=== PATIENT | female | born 1950 | race Caucasian/White ===

== ENCOUNTER 2017-12-01 12:31 | Emergency (ER) | payer MEDICARE, OTHER ==
[2017-12-01] MEDS ORDERED: NS 0.9% 1000 ML* 1,000 ML IV ONE (12:57)
[2017-12-01] MEDS ORDERED: Labetalol IV* 200 MG in NS 0.9% 250 ML* 160 ML IVPB ONE (13:00)
[2017-12-01 13:11] LABS: ABS Basophils 0.1 10^3/ul (0-0.2); ABS Eosinophils 0.1 10^3/ul (0-0.6); ABS Monocytes 0.6 10^3/ul (0-0.8); ABS Neutrophils 5.9 10^3/ul (1.5-7.7); ABS Nucleated RBC 0 10^3/ul; Eosinophil % 0.9 % (0-6); Hematocrit 41 % (35-47); Hemoglobin 14.1 g/dl (12.0-16.0); Lymphocyte % 31.2 % (25-47); Mean Corpuscular HGB Conc 35 g/dl (31-36); Mean Corpuscular Hemoglobin 32 pg (27-31); Mean Corpuscular Volume 91 fL (80-97); Mean Platelet Volume 7 um3 (7.4-10.4); Nucleated Red Blood Cells % 0; Platelet Count 347 10^3/ul (150-450); Red Blood Count 4.45 10^6/ul (4.0-5.4); Red Cell Distribution Width 13 % (10.5-15); White Blood Count 9.6 10^3/ul (3.5-10.8)
[2017-12-01 13:28] LABS: EGFR Non-African American 54.3 (>60)
--- NOTE | 2017-12-01 13:35 | RAD ---
HISTORY: Dizziness, uncontrolled hypertension COMPARISONS: None TECHNIQUE: Multiple contiguous axial CT scans were obtained of the head without intravenous contrast. FINDINGS: HEMORRHAGE/INFARCT: There is no hemorrhage or acute infarct. MASSES/SHIFT: There is no mass or shift. EXTRA-AXIAL SPACES: There are no extra-axial fluid collections. SULCI AND VENTRICLES: The sulci and ventricles are normal in size and position for the patient's stated age. CEREBRUM: There is hypoattenuation of the periventricular and subcortical white matter. BRAINSTEM: There are no focal parenchymal abnormalities. CEREBELLUM: There are no focal parenchymal abnormalities. VESSELS: The vessels are grossly normal. PARANASAL SINUSES: The paranasal sinuses are clear. ORBITS: The orbits are unremarkable. BONES AND SOFT TISSUE: No bone or soft tissue abnormalities are noted. OTHER: None IMPRESSION: NO ACUTE INTRACRANIAL PATHOLOGY. CHRONIC SMALL VESSEL ISCHEMIC CHANGES.
--- NOTE | 2017-12-01 13:42 | RAD ---
HISTORY: Uncontrolled hypertension COMPARISONS: None VIEWS: 1: frontal portable view of the chest at 1:30 PM FINDINGS: LINES AND TUBES: None. CARDIOMEDIASTINAL SILHOUETTE: The cardiomediastinal silhouette is normal for portable technique. PLEURA: The costophrenic angles are sharp. No pleural abnormalities are noted. LUNG PARENCHYMA: There is hyperinflation. ABDOMEN: The upper abdomen is clear. There is no subphrenic gas. BONES AND SOFT TISSUES: No bone or soft tissue abnormalities are noted. IMPRESSION: NO ACTIVE CARDIOPULMONARY DISEASE.
[2017-12-01 15:06] VITALS: BP 162/78
--- NOTE | 2017-12-03 22:34 | ED ---
Faiza Ramirez Abhishek, scribed for London Vivar MD on 12/01/17 at 1247 . Hypertension - HPI Summary HPI Summary: This patient is a 67 year old F BIBA with a chief complaint of HTN since a few hours ago Pt was previously sick with influenza and stomach virus. EMS reports that the pt was non diagnostic for STEMI. Medications reviewed and none reported. Allergies reported and noted. The patient rates the pain 5/10 in severity. Symptoms aggravated by standing. Symptoms alleviated by nothing. Patient reports nausea, changes in hearing (ringing), PINEDA, dizziness, and palpitations. Patient denies vomiting, numbness and tingling, and weakness. - History of Current Complaint Chief Complaint: EDDizziness Stated Complaint: ABD PAIN,DIZZINESS,HEADACHE Hx Obtained From: Patient Onset/Duration: Started Hours Ago - since a few hours ago Timing: Constant Aggravating Factor(s): Position - standing Alleviating Factor(s): Nothing Associated Signs & Symptoms: Dizziness, Other: - Hearing changes ('ringing'), palpitations, and PINEDA - Allergies/Home Medications Allergies/Adverse Reactions: Allergies Allergy/AdvReac Type Severity Reaction Status Date / Time No Known Allergies Allergy Verified 12/01/17 13:10 PMH/Surg Hx/FS Hx/Imm Hx Endocrine/Hematology History: Denies: Hx Diabetes, Hx Thyroid Disease Cardiovascular History: Reports: Hx Hypertension - non-diagnosed, consistently high Respiratory History: Denies: Hx Asthma, Hx Chronic Obstructive Pulmonary Disease (COPD) GI History: Denies: Hx Ulcer - Surgical History Surgery Procedure, Year, and Place: tonsillectomy. appedicitis. tubal ligation Infectious Disease History: No Infectious Disease History: Reports: Hx Hepatitis - as a child Denies: Hx Human Immunodeficiency Virus (HIV), Traveled Outside the [place] in Last 30 Days - Family History Known Family History: Positive: Cardiac Disease, Other - cancer Negative: Diabetes - Social History Alcohol Use: Weekly Substance Use Type: Reports: None Smoking Status (MU): Light Every Day Tobacco Smoker Review of Systems Constitutional: Negative Eyes: Negative ENT: Other - Hearing changes ("ringing") Positive: Palpitations Respiratory: Negative Gastrointestinal: Negative Positive: Nausea. Negative: Vomiting Genitourinary: Negative Musculoskeletal: Negative Skin: Negative Neurological: Other - Loss of Control of arm, and dizziness. Negative Tingling Positive: Headache. Negative: Weakness, Numbness Psychological: Normal All Other Systems Reviewed And Are Negative: Yes Physical Exam - Summary Physical Exam Summary: Appearance: Well-appearing, Well-nourished, Awake and alert, Answers questions appropriately Skin: Warm, Dry, No rash, lymph nodes are absent Eyes: Normal, PERRL, EOMI, sclera anicteric, pupils reactive to light ENT: Normal Neck: Supple, nontender Respiratory: Clear to auscultation, clear lungs, Cardiovascular: S1, S2, no murmur, no rub, no gallop, heart normal Abdomen: Soft, nontender, no organomegaly Bowel sounds: Present Musculoskeletal: Normal, Strength/ROM Intact, no edema, pulses symmetrical, normal motor strength, de quervain's tenosynovitis, Neurological: Normal, A&Ox3, cranial nerves II-XII WNL, follows commands, gait not tested, sensation intact to pin and light touch, normal no nystagmus no positional vertigo Psychiatric: affect normal, behavior appropriate, dressed appropriately, judgment intact Triage Information Reviewed: Yes Vital Signs On Initial Exam: Initial Vitals Temp Pulse Resp BP Pulse Ox 96.8 F 93 18 209/106 99 12/01/17 12:36 12/01/17 12:36 12/01/17 12:36 12/01/17 12:36 12/01/17 12:36 Vital Signs Reviewed: Yes Diagnostics - Vital Signs Vital Signs Temp Pulse Resp BP Pulse Ox 12/01/17 12:36 96.8 F 93 18 209/106 99 - Laboratory Result Diagrams: 12/01/17 13:02 12/01/17 13:02 Lab Statement: Any lab studies that have been ordered have been reviewed, and results considered in the medical decision making process. - Radiology Chest X-ray Radiology Interpretation Completed By: Radiologist - CXR reveals, per radiologist, NO ACTIVE CARDIOPULMONARY DISEASE. ED physician has reviewed this radiology report and agrees. - CT CT Brain CT Interpretation Completed By: Radiologist - CT Brain reveals, per radiologist , NO ACUTE INTRACRANIAL PATHOLOGY. CHRONIC SMALL VESSEL ISCHEMIC CHANGES. ED physician has reviewed this radiology report and agrees. - EKG 1309 EKG Rhythm: Sinus Rhythm - 83 bpm EKG Interpretation: NSR, Peaked T-waves, normal axis, normal intervals at 1309 0030 EKG Rhythm: Sinus Rhythm - 104 bpm EKG Interpretation: NSR, normal axis and intervals; hyperacute T-waves at 0030 Hypertension Course/Dx - Course Course Of Treatment: The pt is a 67 F BIBA with a chief complaint of HTN. Other associated symptoms pt reports are dizziness, nausea, changes in hearing ( ringing), PINEDA, loss of control of arm and palpitations. Patient denies vomiting, numbness and tingling, and weakness. CT Brain and Chest X-ray was taken in [facility] as well as an EKG. The Dx will be poorly controlled HTN and microalbumineria and the patient will be discharged home. - Diagnoses Provider Diagnoses: Poorly-controlled hypertension, Microalbuminuria Discharge - Discharge Plan Condition: Stable Disposition: HOME Prescriptions: Lisinopril [Prinivil TAB 20 mg] 20 mg PO DAILY #1 tab Patient Education Materials: At-Risk Alcohol Use (ED), Chronic Hypertension (ED ), DASH Eating Plan (ED) Referrals: No Primary Care Phys,NOPCP [Primary Care Provider] - The documentation as recorded by the Faiza rees Abhishek accurately reflects the service I personally performed and the decisions made by me, London Vivar MD.
== END 2017-12-01 15:10 | disposition home or self-care (01) ==
LOC: ED 12:31
DX: I10 Essential (primary) hypertension (principal); R80.9 Proteinuria, unspecified; R11.0 Nausea; Z87.891 Personal history of nicotine dependence
CPT/HCPCS: 36415; 70450; 71045; 80053; 82043; 82570; 84443; 84484; 85025; 93005; 96365; 99283

== ENCOUNTER 2018-05-05 20:24 | Emergency (ER) | payer MEDICARE, OTHER ==
--- NOTE | 2018-05-05 20:55 | ED ---
Hypertension - HPI Summary HPI Summary: This is scribe Sariah Finney documenting for attending Benjie Dan MD. This patient is a 67 year old F BIBA to [facility] accompanied by her with a chief complaint of lightheadedness and nausea at 19:30 tongight. Reports SOB and headache. Patients symptoms are currently improved. Patient denies CP. States she currently take 10mg of Lisinopril daily without food, and inconsistent times. States a physician with [facility] prescribed the Lisinpril, but is unable to remember who. I, Dr. Dan ,personally performed the services described in this documentation as scribed in my presence and it is both accurate and complete - History of Current Complaint Chief Complaint: EDDizziness Stated Complaint: DIZZINESS Time Seen by Provider: 05/05/18 20:41 Hx Obtained From: Patient Onset/Duration: Started Hours Ago Timing: Lasting Minutes Associated Signs & Symptoms: Headaches, Dizziness, SOB, Other: - nausea - Allergies/Home Medications Allergies/Adverse Reactions: Allergies Allergy/AdvReac Type Severity Reaction Status Date / Time No Known Allergies Allergy Verified 12/01/17 13:10 PMH/Surg Hx/FS Hx/Imm Hx Endocrine/Hematology History: Denies: Hx Diabetes, Hx Thyroid Disease Cardiovascular History: Reports: Hx Hypertension Respiratory History: Denies: Hx Asthma, Hx Chronic Obstructive Pulmonary Disease (COPD) GI History: Denies: Hx Ulcer - Surgical History Surgery Procedure, Year, and Place: tonsillectomy. appedicitis. tubal ligation Infectious Disease History: No Infectious Disease History: Reports: Hx Hepatitis - as a child Denies: Hx Human Immunodeficiency Virus (HIV), Traveled Outside the [place] in Last 30 Days - Family History Known Family History: Positive: Cardiac Disease, Other - cancer Negative: Diabetes - Social History Alcohol Use: None Substance Use Type: Reports: None Smoking Status (MU): Former Smoker Review of Systems Positive: Other - lightheaded Negative: Chest Pain Positive: Shortness Of Breath Positive: Nausea All Other Systems Reviewed And Are Negative: Yes Physical Exam - Summary Physical Exam Summary: VITAL SIGNS: Reviewed. GENERAL: Patient is a well-developed and nourished female who is lying comfortable in the stretcher. Patient is not in any acute respiratory distress. HEAD AND FACE: No signs of trauma. No ecchymosis, hematomas or skull depressions. No sinus tenderness. EYES: PERRLA, EOMI x 2, No injected conjunctiva, no nystagmus. EARS: Hearing grossly intact. Ear canals and tympanic membranes are within normal limits. MOUTH: Oropharynx within normal limits. NECK: Supple, trachea is midline, no adenopathy, no JVD, no carotid bruit, no c- spine tenderness, neck with full ROM. CHEST: Symmetric, no tenderness at palpation LUNGS: Clear to auscultation bilaterally. No wheezing or crackles. CVS: Regular rate and rhythm, S1 and S2 present, no murmurs or gallops appreciated. ABDOMEN: Soft, non-tender. No signs of distention. No rebound no guarding, and no masses palpated. Bowel sounds are normal. EXTREMITIES: FROM in all major joints, no edema, no cyanosis or clubbing. NEURO: Alert and oriented x 3. No acute neurological deficits. Speech is normal and follows commands. SKIN: Dry and warm Triage Information Reviewed: Yes Vital Signs On Initial Exam: Initial Vitals Temp Pulse Resp BP Pulse Ox 97.9 F 83 18 194/96 99 05/05/18 20:37 05/05/18 20:37 05/05/18 20:37 05/05/18 20:37 05/05/18 20:37 Vital Signs Reviewed: Yes Diagnostics - Vital Signs Vital Signs Temp Pulse Resp BP Pulse Ox 05/05/18 20:37 97.9 F 83 18 194/96 99 - Laboratory Result Diagrams: 05/05/18 21:45 05/05/18 21:45 Lab Statement: Any lab studies that have been ordered have been reviewed, and results considered in the medical decision making process. - Radiology CXR Radiology Interpretation Completed By: ED Physician - No acute process. Pending official report. - EKG 2118 Cardiac Rate: NL - 71 BPM EKG Rhythm: Sinus Rhythm Ectopy: PACs Hypertension Course/Dx - Course Course Of Treatment: "This patient is a 67 year old F BIBA to [facility] accompanied by her with a chief complaint of lightheadedness and nausea at 19:30 tongight. Reports SOB and headache. Patients symptoms are currently improved. Patient denies CP. States she currently take 10mg of Lisinopril daily without food, and inconsistent times. States a physician with [facility] prescribed the Lisinpril, but is unable to remember who". A EKG revealed a rate of 71 BPM and PACs. A CXR revealed no acute process. In the ED course, the patient received Transdate, Morphine and Zofran. Patient will be discharged with a diagnosis of dizziness and headache. Patient is to follow up with PCP in 1-2 days. Patient is to monitor BP at home. Patient is to also increase Liscinopril from 10 mg to 20 mg. Patient is agreeable with this plan. - Diagnoses Provider Diagnoses: Headache, Dizziness Discharge - Sign-Out/Discharge Documenting (check all that apply): Patient Departure - DISCHARGE - Discharge Plan Condition: Stable Disposition: HOME Patient Education Materials: Dizziness (ED), Acute Headache (ED) Referrals: [facility] [Outside] - 2 Days Additional Instructions: FOLLOW UP WITH PRIMARY CARE IN 1-2 DAYS. MONITOR BLOOD PRESSURE AT HOME. INCREASE LISINOPRIL MEDICATION FROM 10 MG TO 20 MG. RETURN TO ED FOR ANY NEW OR WORSENING SYMPTOMS.
[2018-05-05] MEDS ORDERED: Labetalol IV* 5 MG/ML 20 ML VIAL IV PUSH ONE (20:56)
[2018-05-05] MEDS ORDERED: Ondansetron INJ* 2 MG/ML VIAL IV ONE (20:57)
[2018-05-05] MEDS ORDERED: Morphine INJ* 2 MG/ML 1 ML SYRINGE (TWO MG - NEW SYRINGE VERSION) IV ONE (21:53)
[2018-05-05 21:54] LABS: ABS Basophils 0 10^3/ul (0-0.2); ABS Eosinophils 0.1 10^3/ul (0-0.6); ABS Lymphocytes 3.1 10^3/ul (1.0-4.8); ABS Monocytes 0.6 10^3/ul (0-0.8); ABS Neutrophils 4.6 10^3/ul (1.5-7.7); ABS Nucleated RBC 0 10^3/ul; Hematocrit 37 % (35-47); Hemoglobin 12.7 g/dl (12.0-16.0); Lymphocyte % 37.5 % (25-47); Mean Corpuscular HGB Conc 34 g/dl (31-36); Mean Corpuscular Hemoglobin 30 pg (27-31); Mean Corpuscular Volume 88 fL (80-97); Mean Platelet Volume 7.4 um3 (7.4-10.4); Nucleated Red Blood Cells % 0.1; Platelet Count 303 10^3/ul (150-450); Red Blood Count 4.21 10^6/ul (4.00-5.40); Red Cell Distribution Width 13 % (10.5-15); White Blood Count 8.4 10^3/ul (3.5-10.8)
[2018-05-05 22:00] LABS: INR 0.88 (0.77-1.02)
[2018-05-05 22:12] LABS: EGFR Non-African American 68.2 (>60)
[2018-05-05 23:25] VITALS: BP 144/90
--- NOTE | 2018-05-06 07:56 | RAD ---
HISTORY: SOB COMPARISONS: December 01, 2017 VIEWS: 1: frontal portable view of the chest at 9:00 PM FINDINGS: LINES AND TUBES: None. CARDIOMEDIASTINAL SILHOUETTE: The cardiomediastinal silhouette is normal for portable technique. PLEURA: The costophrenic angles are sharp. No pleural abnormalities are noted. LUNG PARENCHYMA: The lungs are clear. ABDOMEN: The upper abdomen is clear. There is no subphrenic gas. BONES AND SOFT TISSUES: No bone or soft tissue abnormalities are noted. IMPRESSION: NO ACTIVE CARDIOPULMONARY DISEASE. R0
== END 2018-05-05 23:25 | disposition home or self-care (01) ==
LOC: ED 20:24
DX: R51 Headache (principal); R42 Dizziness and giddiness; R06.02 Shortness of breath; R11.0 Nausea; Z87.891 Personal history of nicotine dependence
CPT/HCPCS: 36415; 71045; 80053; 83735; 84484; 85025; 85610; 85730; 93005; 96374; 96375; 99283; J2270; J2405